=== PATIENT | male | born 1935 | race Caucasian/White ===

== ENCOUNTER → 2016-11-03 | Outpatient (REF) | payer MEDICARE | LOC: M LAB REF 15:54 | PROVIDERS: ATTEND Nurse Practitioner Family | DX: L08.9 Local infection of the skin and subcutaneous tissue, unspecified (principal) ==

== ENCOUNTER → 2019-11-10 | Outpatient (REF) | payer MEDICARE | LOC: M LAB REF 13:18 | PROVIDERS: ATTEND Dermatology | DX: C44.329 Squamous cell carcinoma of skin of other parts of face (principal); L90.5 Scar conditions and fibrosis of skin ==

== ENCOUNTER → 2021-07-07 | Outpatient (REF) | payer BC, MEDICARE ==
[2021-07-07 18:00] LABS: APPEARANCE, URINE CLOUDY (CLEAR); BACTERIA, URINE AUTO NEGATIVE (NEGATIVE); BILIRUBIN, URINE AUTO NEGATIVE (NEGATIVE); BLOOD, URINE BLOOD 2+ (NEGATIVE); COLOR, URINE AMBER (YELLOW); GLUCOSE, URINE (UA) AUTO NEGATIVE (NEGATIVE); KETONE, URINE AUTO NEGATIVE (NEGATIVE); LEUKOCYTE ESTERASE, URINE AUTO NEGATIVE (NEGATIVE); MUCUS, URINE SMALL (NEGATIVE); NITRITE, URINE AUTO NEGATIVE (NEGATIVE); PROTEIN, URINE AUTO 2+ mg/dL (NEGATIVE); RBC, URINE AUTO 156 /HPF (0-3); SPECIFIC GRAVITY URINE AUTO 1.018 (1.002-1.035); SQUAMOUS EPITHELIAL CELL UR AU 0 /HPF (0-6); UROBILINOGEN, URINE AUTO 0.2 mg/dL (0.0-2.0); WBC, URINE AUTO 25 /HPF (0-3)
== END ==
LOC: M SMT 16:40
PROVIDERS: ATTEND Physician Assistant
DX: R31.21 Asymptomatic microscopic hematuria (principal)

== ENCOUNTER → 2023-12-01 | Outpatient (REF) | payer MEDICARE, OTHER | LOC: M SFHCDERM 18:15 | PROVIDERS: ATTEND Dermatology | DX: C44.329 Squamous cell carcinoma of skin of other parts of face (principal) ==

== ENCOUNTER → 2024-01-03 | Outpatient (CLI) | payer OTHER | LOC: M PLARAD 09:09 | PROVIDERS: ATTEND Dermatology | DX: C44.42 Squamous cell carcinoma of skin of scalp and neck (principal) | CPT/HCPCS: 78816; A9552 ==

== ENCOUNTER → 2024-01-27 | Outpatient (CLI) | payer OTHER ==
[~2024-01-27] MED LIST: BENEPOW18 PO; ELIQ5TAB PO; FERR324T21 PO; FINA5TAB2 PO; FLOM0.4C39 PO; FURO20TA2 PO; POTA-150 PO; PROBCAP14 PO; SILD100T PO; VITATAB73 PO
== END ==
LOC: M ONCR 12:39
PROVIDERS: ATTEND General Practice
DX: C44.320 Squamous cell carcinoma of skin of unspecified parts of face (principal); Z79.01 Long term (current) use of anticoagulants; Z79.899 Other long term (current) drug therapy; Z80.8 Family history of malignant neoplasm of other organs or systems; Z98.890 Other specified postprocedural states

== ENCOUNTER 2024-02-11 10:26 | Outpatient (RCR) | payer OTHER | END 2024-02-26 | LOC: M ONCR 10:26 | PROVIDERS: ATTEND General Practice | DX: Z51.0 Encounter for antineoplastic radiation therapy (principal); C44.320 Squamous cell carcinoma of skin of unspecified parts of face ==

== ENCOUNTER → 2024-02-16 | Outpatient (REF) | payer OTHER | LOC: M SFHCDERM 17:55 | PROVIDERS: ATTEND Dermatology | DX: L82.1 Other seborrheic keratosis (principal) ==

== ENCOUNTER 2024-03-24 09:19 | Outpatient (RCR) | payer MEDICARE, OTHER | END 2024-03-28 | LOC: M ONCR 09:19 | PROVIDERS: ATTEND General Practice | DX: Z51.0 Encounter for antineoplastic radiation therapy (principal); C44.320 Squamous cell carcinoma of skin of unspecified parts of face ==

== ENCOUNTER → 2024-04-25 | Outpatient (CLI) | payer OTHER | LOC: M ONCR 14:11 | PROVIDERS: ATTEND General Practice | DX: C44.329 Squamous cell carcinoma of skin of other parts of face (principal); Z92.3 Personal history of irradiation ==

== ENCOUNTER → 2024-10-18 | Outpatient (CLI) | payer MEDICARE, OTHER ==
[~2024-10-18] MED LIST changes: -FLOM0.4C39 PO; +TAMS-18 PO
== END ==
LOC: M ONCR 10:05
PROVIDERS: ATTEND General Practice
DX: Z08 Encounter for follow-up examination after completed treatment for malignant neoplasm (principal); Z85.828 Personal history of other malignant neoplasm of skin; Z98.890 Other specified postprocedural states; Z92.3 Personal history of irradiation; Z79.01 Long term (current) use of anticoagulants; Z79.899 Other long term (current) drug therapy

== ENCOUNTER → 2024-12-27 | Outpatient (REF) | payer OTHER ==
[2024-12-27 19:16] LABS: HIV 1&2 SCREEN NEGATIVE (NEGATIVE)
[2024-12-27 19:25] LABS: HEPATITIS C VIRUS ABY INDEX 0.03 INDEX (<0.8)
== END ==
LOC: M WUC 13:35 → EDSTATUS 13:38
PROVIDERS: ATTEND Physician Assistant
DX: Z77.21 Contact with and (suspected) exposure to potentially hazardous body fluids (principal)